=== PATIENT | male | born 1950 | race Caucasian/White ===

== ENCOUNTER 2017-01-13 12:43 | Day surgery (SDC) | payer MEDICARE ==
[~2017-01-13 12:43] MED LIST: APRACLONIDINE HCL 50 DROP BTL RIGHTEYE PRN; PHENYLEPHRINE HCL 50 DROP BTL RIGHTEYE PRN; TROPICAMIDE 150 DROP BTL RIGHTEYE PRN
--- OUTSIDE RECORDS SUMMARY | 2017-01-13 12:48 | XMS REPORT | Continuity of Care Document ---
:1950 Author Organization [facility] ([facility]) Address [address] [place] [address] Phone [phone] Care Team Providers Name Role Phone Oh Tejeda Primary Care Provider [phone] Source Comments This disclosure is being made pursuant to the Care Everywhere program, applicable federal and state laws, and may not contain all informaitonavailable regarding this patient.[facility] ([facility]) Active Allergies and Adverse Reactions No Known Allergies Current Medications Prescription Sig. Disp. Refills Start End Date Status Date aspirin 325 mg EC tablet Take 325 mg Active by mouth 3 daily enalapril 20 mg tablet Take 20 mg Active by mouth 2 3 times daily hydrochlorothiazide 25 Take 25 mg Active mg tablet by mouth 3 daily saxagliptin (ONGLYZA) 5 Take 5 mg by Active mg tablet mouth daily 3 MULTIVITAMIN (MULTIPLE Take 1 Active VITAMINS PO) tablet by mouth daily. sitaGLIPtin (JANUVIA) Take 100 mg Active 100 mg tablet by mouth daily naproxen sodium 220 mg Take 440 mg Active tablet by mouth daily as needed atorvastatin 80 mg Take 80 mg Active tablet by mouth at bedtime gabapentin 300 mg Take 300 mg Active capsule by mouth 2 times daily . metoPROLol succinate 50 Take 50 mg Active mg XL tablet by mouth daily glipiZIDE 10 mg XL Take 10 mg Active tablet by mouth 5 daily . metFORMIN 750 mg XR Take 750 mg Active tablet by mouth 2 5 times daily. docusate 100 mg capsule Take 1 30 capsule 3 01/09/20 Discontinued capsule (100 6 17 mg total) by mouth 2 times daily sennosides 8.6 mg tablet Take 1-2 30 tablet 3 01/09/20 Discontinued tablets 6 17 (8.6-17.2 mg total) by mouth daily Active Problems Problem Noted Date Morbid obesity 09/22/2015 Prostate cancer 09/21/2015 Coronary artery disease Overview: CARDIOVASCULAR PROCEDURES STRESS Stress Echo NORMAL STRESS ECHOCARDIOGRAM PEAK STRESS ECHO IMAGES - Hyperdynamic response to peak stress BASELINE ECHO IMAGES - Normal LV systolic function. No regional wall motion abnormalities. Stress test terminated due to achievement of target HR. 01/05/2016 Hypertension Hyperlipemia Sleep apnea Diabetes Most Recent Encounters Date Type Specialty Providers Description 01/09/2017 Office Visit Heart and Vascular Aniya Alcala MD Dx: Coronary artery disease involving [place] coronary artery of [place] heart without angina pectoris (Primary Dx) 01/08/2017 Office Visit Urology Aj Banks MD Dx: Prostate cancer Lulu Lu PA-C Social History Tobacco Use Types Packs/Day Years Used Date Former Smoker Cigarettes 1 15 Quit: 01/08/1982 Smokeless Tobacco: Never Used Tobacco Cessation:Counseling Given: Yes Comments: Alcohol Use Drinks/Week oz/Week Comments No Last Filed Vital Signs Vital Sign Reading Time Taken Blood Pressure 142/84 01/09/2017 9:55 AM CDT Pulse 56 01/09/2017 9:55 AM CDT Temperature 36.3 C (97.3 F) 01/08/2017 8:14 AM CDT Respiratory Rate 20 09/27/2015 8:22 AM SUSPECT ARTIST Height 1.727 m (5' 8") 01/09/2017 9:55 AM CDT Weight 119.84 kg (264 lb 3.2 oz) 01/09/2017 9:55 AM CDT Body Mass Index 40.18 01/09/2017 9:55 AM CDT Oxygen Saturation 96% 09/23/2015 8:00 AM SUSPECT ARTIST Plan of Care Date Type Specialty Providers Description 06/17/2017 Appointment Urology Aj Banks MD [address] [place] [address] [phone] (Fax) Chief Comp: Patient Lulu Lu PA-C [address] [place] [address] [phone] (Fax) Reported Reason For Visit 01/13/2018 Appointment Heart and Vascular FredrickAniya MD Chief Comp: Patient [address] [place] [address] Visit [phone] (Fax) Health Maintenance Due Date Last Done Comments HCV Screening 1950 Hepatitis B Vaccine (1 of 3 - 1950 Primary Series) Tdap Vaccine 01/02/1960 DIABETIC: Cholesterol 1967 Diabetic: Hdl 1967 Diabetic: Ldl 1967 DIABETIC: Microalbumin 1967 DIABETIC: Triglycerides 1967 Td Vaccine 1967 Colonoscopy 1999 Zoster Vaccine 2009 Pneumococcal Vaccine (1 of 2 2014 - PCV13) DIABETIC: Foot Exam 03/08/2015 DIABETIC: Retinal Eye Exam 03/08/2015 DIABETIC: Hemoglobin A1C 02/12/2016 08/14/2015 Influenza Vaccine: Seasonal 04/15/2017 (Season Ended) Prostate Cancer Screening 01/08/2019 01/08/2017, Additional history exists 09/11/2016, 03/06/2016 Results from Last 3 Months PROSTATE SPECIFIC ANTIGEN (PSA), TOTAL DIAGNOSTIC (01/08/2017 8:19 AM) Component Value Range PSA, Diagnostic <0.03Comment: 0.00-4.50 ng/mL Age specific normal values from the literature for PSA are provided as a guide only.No one decision level is appropriate when utilizing PSA in screening situation.Age, family history, previous values, and other factors should be used in decisions involving PSA values. Reference Ranges: 40-49 years:0.00-2.50 ng/mL 50-59 years:0.00-3.50 ng/mL 60-69 years:0.00-4.50 ng/mL 70-79 years:0.00-6.50 ng/mL Specimen Blood
[2017-01-13 12:54] VITALS: BP 156/74
== END 2017-01-13 12:44 | disposition home or self-care (01) ==
LOC: AMB 12:43
PROVIDERS: ATTEND Ophthalmology
PROC: 085J3ZZ Destruction of Right Lens, Percutaneous Approach (ICD-10-PCS; principal; 2017-01-13 14:55)
DX: H26.491 Other secondary cataract, right eye (principal); Z68.36 Body mass index [BMI] 36.0-36.9, adult

== ENCOUNTER 2020-03-06 10:47 | Observation (INO) ==
--- NOTE | 2020-03-06 11:25 | ERNOTE ---
Chest Pain/Cardiac HPI Date of Service: 03/06/20 Chief Complaint: Tachycardia Time Seen by Provider: 03/06/20 11:06 Source: patient Exam Limitations: no limitations Immunizations: IMMUNIZATION HX Immunizations Up to Date Yes History of Influenza Vaccine No Hx Pneumococcal Vaccination No Allergies/Adverse Reactions: Allergies sitagliptin [From Januvia] Allergy (Mild, Verified 03/06/20 11:48) can cause heart failure hydrochlorothiazide Adverse Reaction (Mild, Verified 03/06/20 11:48) Other leg cramps ragweed pollen Adverse Reaction (Unknown, Verified 03/06/20 11:48) Home Medications: HOME MEDICATIONS Multivitamins [Multivitamin Arden] 1 cap PO DAILY 05/07/13 [Last Taken Unknown] aspirin 325 mg tablet,delayed release 325 mg PO DAILY 04/24/18 [Last Taken Unknown] dulaglutide 0.75 mg/0.5 mL subcutaneous pen injector 0.75 mg SUBCUT QWEEK #2 ml 06/17/19 [Last Taken 02/29/20] enalapril maleate 20 mg tablet 40 mg PO DAILY #180 tab 09/23/19 [Last Taken Unknown] glipizide 10 mg tablet 10 mg PO BID #180 tab 09/23/19 [Last Taken Unknown] metformin 500 mg tablet,extended release 24 hr 1,000 mg PO BID #180 tab 11/29/19 [Last Taken Unknown] atorvastatin 80 mg tablet 80 mg PO DAILY #90 tab 02/22/20 [Last Taken Unknown] Apixaban [Eliquis] 5 mg PO BID 03/06/20 [Last Taken Unknown] Furosemide [Lasix] 40 mg PO DAILY PRN 03/06/20 [Last Taken Unknown] Gabapentin 300 mg PO BID 03/06/20 [Last Taken Unknown] Metoprolol Tartrate 100 mg PO BID 03/06/20 [Last Taken Unknown] Pain Score #1 Pain Score: 0 Narrative: The patient is a 70 year old male who presents for tachycardia which has been present since Friday. There are associated symptoms of dyspnea and fatigue. The patient denies pain. There are no alleviating factors. There are aggravating factors of activity and exertion. Previous treatments have included: none. The past medical history includes: HTN, CAD, DM, HLD, ND, COPD, prostate ca, RLS, AFib and CHF. The social history is positive for former smoker. The patient has had no known ill contacts. Patient states that he noticed tachycardia and increased shortness of breath that began on Friday. Patient denies increased weight gain. Patient reports dx of AFib last year in which he had ROBBIE performed and then cardioversion which later converted back to AFib. Review of Systems - Review of Systems Constitutional: Present: fatigue. Absent: recent illness, fever, diaphoresis EYE: Present: no symptoms reported. Absent: vision changes ENT: Absent: ear pain, nasal drainage, sore throat Respiratory: Present: shortness of breath, cough Cardiology: Absent: chest pain, edema Gastrointestinal/Abdominal: Present: no symptoms reported. Absent: nausea, vomiting, diarrhea, abdominal pain Genitourinary: Present: no symptoms reported. Absent: dysuria, decreased urinary output Musculoskeletal: Present: no symptoms reported Skin: Present: no symptoms reported. Absent: rash Neurological: Present: no symptoms reported. Absent: headache, dizziness/light- headedness, weakness All Other Systems: All systems neg except as marked Medical History (Last Reviewed 03/06/20 @ 11:56 by DOUG Meredith) Atrial flutter Onset Date: ~08/13/19 dx'd in ER Congestive heart failure Onset Date: ~08/13/19 dx'd in ER Bilateral club feet Onset Date: Unknown at ; repair at 1 yrs of age COPD (chronic obstructive pulmonary disease) Onset Date: 05/21/11 Diabetes mellitus Onset Date: 05/21/11 Diabetic nephropathy Onset Date: ~2006 Erectile dysfunction Onset Date: ~2006 History of coronary artery disease Onset Date: 10/21/17 involving [place] coronary artery of [place] heart without angina pectoris- [facility] [place] History of restless legs syndrome Onset Date: ~2006 Hyperlipidemia Onset Date: Unknown Hypertension, essential, benign Onset Date: 05/21/11 Myocardial infarction Onset Date: ~2003 Shoulder pain Onset Date: 05/21/11 History of radiation therapy Onset Date: ~09/2015 for prostate cancer Prostate cancer Onset Date: Unknown Tuberculin skin test positive Onset Date: Unknown chest xray negative Surgical History: Surgical History (Last Reviewed 03/06/20 @ 11:56 by DOUG Meredith) History of carpal tunnel release Onset Date: 08/25/01 Dr Tony Hernandez- right wrist 08/25/2001 and left wrist 07/14/2001 History of colonoscopy Onset Date: 06/12/11 Dr Hodge- benign hyperplastic polyp @ 25 cm History of coronary artery bypass graft Onset Date: ~2003 History of inguinal hernia repair Onset Date: ~2005 History of prostatectomy Onset Date: Unknown History of vasectomy Onset Date: ~2003 Family History: Family History (Last Reviewed 03/06/20 @ 11:56 by DOUG Meredith) Aunt Diabetes Father , age 79 Colon cancer Esophageal cancer Mother , age 72 Heart disease Diabetes Brother Alive and well Brother Alive and well Brother Myocardial infarction Sister Alive and well Sister Alive and well Sister Diabetes insulin dependent Social History: (Last Reviewed 03/06/20 @ 11:56 by DOUG Meredith) Social History: adopted: No foster care: No shelter: No Marital status: lives independently: Yes household members: spouse caregiver/support person: Yes current occupational status: retired Highest education level completed: high school graduate Service: No Tobacco: Smoking Status: Former smoker Alcohol: alcohol intake: current Alcohol type: wine alcohol intake frequency: holiday/special occasion details: occasional glass of wine Substance Use: substance use type: does not use Dietary Habits: caffeine: Yes Type: coffee Marlys/Uatsdin: marlys/muslim: Mandaeism Personal Safety: victim of physical abuse: No victim of emotional abuse: No victim of sexual abuse: No Physical Exam - Physical Exam General Appearance: Present: wd/wn, alert, no apparent distress Head Exam: Present: normal inspection, no evidence of injury Eye Exam: Normal inspection: bilateral Neck: Present: normal inspection Respiratory: Present: no respiratory distress, normal breath sounds, no accessory muscle use, lungs clear Cardiovascular/Chest: Present: no murmur, irregularly irregular Gastrointestinal/Abdominal: Present: normal bowel sounds, nontender, nondistended, soft, no organomegaly Extremity Exam: Present: extremity edema - 2+ pitting bilateral lower extremites Neurological Exam: Present: alert, oriented, normal mood/affect, no motor/sensory deficits Skin Exam: Present: normal color, warm/dry Progress - Date and Time Seen: Date and Time: 03/06/20 12:27 Patient states he began taking his Lasix again on Friday with improved output but no change to dyspnea. 03/06/20 12:33 Review of results discussed with patient. Patient unsure of his Lasix dose. Due to symptoms of dyspnea along with 2+ pitting edema and afib will admit patient for observation CHF with diuresis to and monitoring for symptoms. Case discussed with for observation admission. 03/06/20 12:39 Patient's PCP is , unable to reach, notified , ok to admit. - Results and Orders Patient's Lab Results:: I have reviewed the patient's lab results. - Vital Signs Patient's Vital Signs:: I have reviewed the patient's vital signs. Vital Signs: Vital Signs 03/06/20 10:59 03/06/20 11:02 Temperature 36 C Pulse Rate 113 H 113 H Respiratory Rate 18 Blood Pressure 146/95 H O2 Sat by Pulse Oximetry 96 - EKG EKG #1 EKG: atrial fibrillation - rate 84 EKG read: Reviewed by me - no acute ischemic changes noted, reviewed with - X-Ray X-Ray #1 X-Ray: chest Interpretation: Reviewed by me X-ray Comments: IMPRESSION: CHRONIC BORDERLINE CARDIOMEGALY. CHRONIC LEFT MID AND LEFT LUNG BASE CONSOLIDATION WITH CHRONIC SMALL PLEURAL EFFUSION. Electronically signed by Yong Song M.D.. - Progress/Reassessment Chief Complaint: Tachycardia Departure Clinical Impression: Atrial fibrillation/flutter Congestive heart failure Qualifiers: Heart failure type: diastolic Heart failure chronicity: acute on chronic Qualified Code(s): I50.33 - Acute on chronic diastolic (congestive) heart failure - Departure Disposition: Still a patient Condition: Good
[2020-03-06 11:46] LABS: Hematocrit 43.1 % (42.0-52.0); Hemoglobin 14.4 gm/dL (13.5-18.0); Mean Cell Volume 91.9 fl (78-100); Mean Corpuscular Hemoglobin 30.7 pg (27-31); Mean Corpuscular Hgb Conc 33.4 g/dl (32-36); Mean Platelet Volume 9.7 fl (8-11.3); Neutrophil # 6.3 K/mm3 (1.3-6.0); Neutrophil % 69.6 % (42-75.0); Platelet Count 221 K/mm3 (150-450); Red Blood Count 4.69 M/mm3 (4.7-6.0); Red Cell Distribution Width 14.6 % (11.5-14.0); White Blood Count 9.1 K/mm3 (4.0-10.5)
[2020-03-06 11:55] LABS: Prothrombin Time (Patient) 10.4 Seconds (9.1-10.7)
[2020-03-06 12:03] LABS: INR 1.05 INR (0.92-1.08); Partial Thrombolplastin Time 27.5 Seconds (24-32); Troponin I Less than 0.017 ng/mL (0.00-0.10)
[2020-03-06 12:13] LABS: ALT 61 U/L (19-67); AST 25 U/L (0-48); Albumin * 3.8 gm/dl (3.4-5.0); Alkaline Phosphatase * 88 U/L (50-170); BNP * 2256 pg/mL (5-350); BUN/Creatinine Ratio 14.3 (9.0-21.6); Bilirubin, Total 1.5 mg/dL (0.0-1.1); Blood Urea Nitrogen 17 mg/dL (6-23); Ca. Corrected For Albumin 8.9 mg/dL (8.4-10.2); Calcium * 9.1 mg/dL (7.9-10.9); Carbon Dioxide 30.7 mmol/L (24-32.6); Chloride 98 mmol/L (97-106); Glucose * 193 mg/dL (70-110); Potassium 3.7 mmol/L (3.4-4.6); Sodium 137 mmol/L (132-142); Total Protein 8.1 gm/dL (6.2-8.2)
[2020-03-06] MEDS ORDERED: FUROSEMIDE 10 MG/ML VIAL IV ONE (12:32)
--- NOTE | 2020-03-06 19:21 | HP ---
Chief Complaint - Chief Complaint Date of Service: 03/06/20 Time of Service: 12:50 Chief Complaint: Shortness of breath, weakness, irregular heart rhythm History of Present Illness: Tomer Leong is a 70-year-old male patient of Dr. Oh Tejeda MD who presented to ER with shortness of breath and an irregular tachydysrhythmia. Evaluation in the ER suggested CHF and atrial fib flutter that appears to be intermittent. This was associated with mild RVR as well. He was diuresed in the emergency room with 40 of Lasix IV. He voided a lot of urine and by the time I examined him in ER his rales were gone and he was no longer dyspneic. His neck veins were no longer distended. He continued to be in atrial fib flutter with mild RVR with a heart rate of around [id number]. Chest x-ray shows what looks to be a chronic pleural effusion but I suspect that it is just scar tissue residual from his CABG. The radiologist also says her some small pleural effusions but one sees these a lot after a CABG. He is in no distress at this time he is going to [facility] unit. I have notified Dr. Juliana Osman of his admission about 7:10 PM tonight and he will see him tomorrow morning. Medical History (Last Reviewed 03/06/20 @ 13:46 by Sherlyn Segura RN) Atrial flutter Onset Date: ~08/13/19 dx'd in ER Congestive heart failure Onset Date: ~08/13/19 dx'd in ER Bilateral club feet Onset Date: Unknown at ; repair at 1 yrs of age COPD (chronic obstructive pulmonary disease) Onset Date: 05/21/11 Diabetes mellitus Onset Date: 05/21/11 Diabetic nephropathy Onset Date: ~2006 Erectile dysfunction Onset Date: ~2006 History of coronary artery disease Onset Date: 10/21/17 involving [place] coronary artery of [place] heart without angina pectoris- [facility] [place] History of restless legs syndrome Onset Date: ~2006 Hyperlipidemia Onset Date: Unknown Hypertension, essential, benign Onset Date: 05/21/11 Myocardial infarction Onset Date: ~2003 Shoulder pain Onset Date: 05/21/11 History of radiation therapy Onset Date: ~09/2015 for prostate cancer Prostate cancer Onset Date: Unknown Tuberculin skin test positive Onset Date: Unknown chest xray negative Surgical History: Surgical History (Last Reviewed 03/06/20 @ 13:46 by Sherlyn Segura RN) History of carpal tunnel release Onset Date: 08/25/01 Dr Tony Hernandez- right wrist 08/25/2001 and left wrist 07/14/2001 History of colonoscopy Onset Date: 06/12/11 Dr Hodge- benign hyperplastic polyp @ 25 cm History of coronary artery bypass graft Onset Date: ~2003 History of inguinal hernia repair Onset Date: ~2005 History of prostatectomy Onset Date: Unknown History of vasectomy Onset Date: ~2003 Family History: Family History (Last Reviewed 03/06/20 @ 13:46 by Sherlyn Segura RN) Aunt Diabetes Father , age 79 Esophageal cancer Colon cancer Mother , age 72 Diabetes Heart disease Brother Alive and well Brother Alive and well Brother Myocardial infarction Sister Alive and well Sister Alive and well Sister Diabetes insulin dependent Social History: (Last Reviewed 03/06/20 @ 13:46 by Sherlyn Segura RN) Social History: adopted: No foster care: No chcf: No Marital status: lives independently: Yes household members: spouse caregiver/support person: Yes current occupational status: retired Highest education level completed: high school graduate Service: No Tobacco: Smoking Status: Former smoker Alcohol: alcohol intake: current Alcohol type: wine alcohol intake frequency: holiday/special occasion details: occasional glass of wine Substance Use: substance use type: does not use Dietary Habits: caffeine: Yes Type: coffee Marlys/Jehovah'S Witness: marlys/nondenominational: Yazidism Personal Safety: victim of physical abuse: No victim of emotional abuse: No victim of sexual abuse: No Review Of Systems (GEN) - Review of Systems Generalized/Overall Review: Present: Weakness, Malaise EENTM: Present: No Symptoms Reported Respiratory: Present: Shortness of Breath Cardiac: Present: Palpitations Abdominal: Present: No Symptoms Reported Genitourinary: Present: No Symptoms Reported Musculoskeletal: Present: No Symptoms Reported Neurological: Present: No Symptoms Reported Skin: Present: No Symptoms Reported Endocrine: Present: No Symptoms Reported Immunizations: IMMUNIZATION HX Immunizations Up to Date Yes History of Influenza Vaccine No Hx Pneumococcal Vaccination No Allergies/Adverse Reactions: Allergies Allergy/AdvReac Type Severity Reaction Status Date / Time sitagliptin [From Sepuvia] Allergy Mild can cause Verified 03/06/20 11:48 heart failure hydrochlorothiazide AdvReac Mild Other Verified 03/06/20 11:48 ragweed pollen AdvReac Unknown Verified 03/06/20 11:48 Home Medications: HOME MEDICATIONS Multivitamins [Multivitamin Arden] 1 cap PO DAILY 05/07/13 [Last Taken Unknown] aspirin 325 mg tablet,delayed release 325 mg PO DAILY 04/24/18 [Last Taken Unknown] dulaglutide 0.75 mg/0.5 mL subcutaneous pen injector 0.75 mg SUBCUT QWEEK #2 ml 06/17/19 [Last Taken 02/29/20] enalapril maleate 20 mg tablet 40 mg PO DAILY #180 tab 09/23/19 [Last Taken Unknown] glipizide 10 mg tablet 10 mg PO BID #180 tab 09/23/19 [Last Taken Unknown] metformin 500 mg tablet,extended release 24 hr 1,000 mg PO BID #180 tab 11/29/19 [Last Taken Unknown] atorvastatin 80 mg tablet 80 mg PO DAILY #90 tab 02/22/20 [Last Taken Unknown] Apixaban [Eliquis] 5 mg PO BID 03/06/20 [Last Taken Unknown] Furosemide [Lasix] 40 mg PO DAILY PRN 03/06/20 [Last Taken Unknown] Gabapentin 300 mg PO BID 03/06/20 [Last Taken Unknown] Metoprolol Tartrate 100 mg PO BID 03/06/20 [Last Taken Unknown] Exam - Exam Vital Signs: Vital Signs - Last Taken Temp 36.6 C 03/06/20 18:00 Pulse 80 03/06/20 18:00 Resp 18 03/06/20 18:00 BP 120/83 03/06/20 18:00 Pulse Ox 95 03/06/20 18:00 Constitutional: Present: Alert, Oriented x3, Cooperative, Well developed, Well nourished, Obese ENT Exam: Present: normal ENT inspection, hearing grossly normal, pharynx normal, TMs normal Eye Exam: bilateral eye: normal inspection, PERRL, EOMI Neck: Present: non-tender, full range of motion, supple, normal inspection Back Exam: Present: normal inspection, no CVA tenderness, no vertebral tenderness Breasts: Present: Exam deferred Respiratory: Present: chest non-tender, lungs clear Cardiovascular/Chest: Present: normal peripheral pulses, regular rate, rhythm, no chest tenderness, no edema, no gallop, no JVD, no murmur, no rub Peripheral Pulses: carotid (R): 2+, carotid (L): 2+, radial (R): 2+, radial (L): 2+ Abdomen: Present: Normal bowel sounds, soft, nontender, nondistended, no rebound tenderness, no hepatospenomegaly, no masses, obese /Rectal: Present: Exam deferred, External genitalia normal Skin Exam: Present: normal color, warm/dry, no cyanosis Lymphatic: Present: no adenopathy Neurologic: Present: card cutter II-XII nml as tested, normal cerebellar test Appearance: Present: appropriate appearance, appropriate insight, neat, impaired remote memory Eye contact: Present: cooperative, good eye contact, normal speech Thoughts: Present: normal thought pattern, no apparent hallucination Diagnostic Studies: Abnormal Lab Results 03/06/20 03/06/20 Range/Units 11:34 11:34 RBC 4.69 L (4.7-6.0) M/mm3 RDW 14.6 H (11.5-14.0) % Immature Gran % (Auto) 0.70 H (0.001-0.429) % Immature Gran # (Auto) 0.06 H (0.000-0.0310) K/mm3 Lymphocytes % 15.7 L (20-51) % Eosinophils % 6.5 H (0.0-3.0) % Basophils % 1.1 H (0.0-1.0) % Neutrophils # 6.3 H (1.3-6.0) K/mm3 Lymphocytes # 1.42 L (1.5-3.5) k/mm3 Random Glucose 193 H (70-110) mg/dL Total Bilirubin 1.5 H (0.0-1.1) mg/dL B-Natriuretic Peptide 2256 H (5-350) pg/mL Laboratory Results WBC 9.1 K/mm3 (4.0-10.5) 03/06/20 11:34 RBC 4.69 M/mm3 (4.7-6.0) L 03/06/20 11:34 Hgb 14.4 gm/dL (13.5-18.0) 03/06/20 11:34 Hct 43.1 % (42.0-52.0) 03/06/20 11:34 MCV 91.9 fl (78-100) 03/06/20 11:34 MCH 30.7 pg (27-31) 03/06/20 11:34 MCHC 33.4 g/dl (32-36) 03/06/20 11:34 RDW 14.6 % (11.5-14.0) H 03/06/20 11:34 Plt Count 221 K/mm3 (150-450) 03/06/20 11:34 MPV 9.7 fl (8-11.3) 03/06/20 11:34 Immature Gran % (Auto) 0.70 % (0.001-0.429) H 03/06/20 11:34 Immature Gran # (Auto) 0.06 K/mm3 (0.000-0.0310) H 03/06/20 11:34 Neutrophils % 69.6 % (42-75.0) 03/06/20 11:34 Lymphocytes % 15.7 % (20-51) L 03/06/20 11:34 Monocytes % 6.4 % (0.0-9) 03/06/20 11:34 Eosinophils % 6.5 % (0.0-3.0) H 03/06/20 11:34 Basophils % 1.1 % (0.0-1.0) H 03/06/20 11:34 Nucleated RBC % 0.0 k/mm3 (0-1) 03/06/20 11:34 Neutrophils # 6.3 K/mm3 (1.3-6.0) H 03/06/20 11:34 Lymphocytes # 1.42 k/mm3 (1.5-3.5) L 03/06/20 11:34 Monocytes # 0.6 k/mm3 (0.0-1.0) 03/06/20 11:34 Eosinophils # 0.6 k/mm3 (0.0-0.7) 03/06/20 11:34 Absolute Basophils 0.1 k/mm3 (0.0-0.1) 03/06/20 11:34 PT 10.4 Seconds (9.1-10.7) 03/06/20 11:34 INR (Anticoag Therapy) 1.05 INR (0.92-1.08) 03/06/20 11:34 PTT (Flynn) 27.5 Seconds (24-32) 03/06/20 11:34 Sodium 137 mmol/L (132-142) 03/06/20 11:34 Plasma Sodium 138 mmol/L (130-142) 03/06/20 11:34 Potassium 3.7 mmol/L (3.4-4.6) 03/06/20 11:34 Chloride 98 mmol/L (97-106) 03/06/20 11:34 Carbon Dioxide 30.7 mmol/L (24-32.6) 03/06/20 11:34 Anion Gap 12.0 mmol/L (6.8-13.8) 03/06/20 11:34 BUN 17 mg/dL (6-23) 03/06/20 11:34 Creatinine 1.19 mg/dL (0.4-1.4) 03/06/20 11:34 Est GFR (Non-Af Amer) 64 mL/min (60-130) 03/06/20 11:34 BUN/Creatinine Ratio 14.3 (9.0-21.6) 03/06/20 11:34 Random Glucose 193 mg/dL (70-110) H 03/06/20 11:34 Calcium 9.1 mg/dL (7.9-10.9) 03/06/20 11:34 Calcium Adj for Albumin 8.9 mg/dL (8.4-10.2) 03/06/20 11:34 Total Bilirubin 1.5 mg/dL (0.0-1.1) H 03/06/20 11:34 AST 25 U/L (0-48) 03/06/20 11:34 ALT 61 U/L (19-67) 03/06/20 11:34 Alkaline Phosphatase 88 U/L (50-170) 03/06/20 11:34 Troponin I Less than 0.017 ng/mL (0.00-0.10) 03/06/20 11:34 B-Natriuretic Peptide 2256 pg/mL (5-350) H 03/06/20 11:34 Total Protein 8.1 gm/dL (6.2-8.2) 03/06/20 11:34 Albumin 3.8 gm/dl (3.4-5.0) 03/06/20 11:34 Assessment/Plan - Narrative Narrative: Monitor vital signs through the night. Reweigh again tomorrow morning. Check morning lab and EKG. Dr. Tejeda to assume management tomorrow morning. Anticipate discharge tomorrow. - Assessment/Plan (1) Atrial fibrillation/flutter Problem: Acute (2) Congestive heart failure Problem: Acute Qualifiers: Heart failure type: diastolic (3) CAD (coronary artery disease) Problem: Chronic Qualifiers: Coronary Disease-Associated Artery/Lesion type: [place] artery [place] vs. transplanted heart: [place] heart Associated angina: without angina Qualified Code(s): I25.10 - Atherosclerotic heart disease of [place] coronary artery without angina pectoris
[2020-03-06] MEDS: ASPIRIN 325 MG TABLET.DR PO SCH (19:30)
[2020-03-06] MEDS ORDERED: glipiZIDE 5 MG TABLET ONE (20:43)
[2020-03-06] MEDS: APIXABAN 5 MG TABLET PO SCH (20:45)
[2020-03-06] MEDS: GABAPENTIN 300 MG CAPSULE PO SCH (20:46)
[2020-03-06] MEDS: glipiZIDE 10 MG TABLET PO SCH (20:53)
[2020-03-06] MEDS ORDERED: ROSUVASTATIN CALCIUM 20 MG TABLET PO SCH (21:00)
[2020-03-06] MEDS ORDERED: METOPROLOL TARTRATE 50 MG TABLET PO SCH (21:00)
[2020-03-07 06:31] LABS: Hematocrit 38.8 % (42.0-52.0); Hemoglobin 12.9 gm/dL (13.5-18.0); Mean Cell Volume 90.7 fl (78-100); Mean Corpuscular Hemoglobin 30.1 pg (27-31); Mean Corpuscular Hgb Conc 33.2 g/dl (32-36); Mean Platelet Volume 9.8 fl (8-11.3); Neutrophil # 5.2 K/mm3 (1.3-6.0); Neutrophil % 64.5 % (42-75.0); Platelet Count 196 K/mm3 (150-450); Red Blood Count 4.28 M/mm3 (4.7-6.0); Red Cell Distribution Width 14.4 % (11.5-14.0); White Blood Count 8.1 K/mm3 (4.0-10.5)
[2020-03-07 06:35] LABS: Albumin * 3.2 gm/dl (3.4-5.0); Anion Gap 13.4 mmol/L (6.8-13.8); BUN/Creatinine Ratio 13.7 (9.0-21.6); Bilirubin, Total 1.3 mg/dL (0.0-1.1); Ca. Corrected For Albumin 9.5 mg/dL (8.4-10.2); Calcium * 9.2 mg/dL (7.9-10.9); Carbon Dioxide 30.2 mmol/L (24-32.6); Magnesium 1.6 mg/dL (1.2-2.8); Potassium 3.6 mmol/L (3.4-4.6); Total Protein 6.8 gm/dL (6.2-8.2)
[2020-03-07] MEDS: glipiZIDE 10 MG TABLET PO SCH (08:05)
[2020-03-07] MEDS: APIXABAN 5 MG TABLET PO SCH (08:09)
[2020-03-07] MEDS: GABAPENTIN 300 MG CAPSULE PO SCH (08:09)
[2020-03-07] MEDS: ASPIRIN 325 MG TABLET.DR PO SCH (08:09)
[2020-03-07] MEDS ORDERED: METOPROLOL TARTRATE 100 MG TABLET PO SCH (09:00)
[2020-03-07] MEDS ORDERED: MULTIVITAMINS 1 CAP CAPSULE PO SCH (09:00)
[2020-03-07] MEDS ORDERED: ENALAPRIL MALEATE 20 MG TABLET PO SCH (09:00)
--- NOTE | 2020-03-07 11:46 | DS ---
(1) Atrial fibrillation/flutter Diagnosis(s): Chronic recurrent. He had the same problem towards the end of last year. He was cardioverted, but then relapsed back into atrial fibrillation/flutter. His process mechanic is Dr. Aniya Alcala. Problem: Chronic (2) Congestive heart failure Problem: Resolved Qualifiers: Heart failure type: diastolic Heart failure chronicity: acute on chronic Qualified Code(s): I50.33 - Acute on chronic diastolic (congestive) heart failure (3) Benign essential hypertension Problem: Chronic (4) CAD (coronary artery disease) Problem: Chronic Qualifiers: Coronary Disease-Associated Artery/Lesion type: [place] artery [place] vs. transplanted heart: [place] heart Associated angina: without angina Qualified Code(s): I25.10 - Atherosclerotic heart disease of [place] coronary artery without angina pectoris (5) Diabetes mellitus Diagnosis(s): Poorly controlled Problem: Chronic Qualifiers: Diabetes mellitus type: type 2 Diabetes mellitus senior living insulin use: without medical terminologist use Diabetes mellitus complication status: with neurologic complications Diabetes mellitus complication detail: with polyneuropathy Qualified Code(s): E11.42 - Type 2 diabetes mellitus with diabetic polyneuropathy Date of Discharge:: 03/07/20 Hospital Course: Tomer Leong is a 70-year-old male who presented to ER with shortness of breath and an irregular tachydysrhythmia yesterday. Evaluation in the ER suggested CHF and atrial fib flutter that appears to be intermittent. This was associated with mild RVR as well. He was diuresed in the emergency room with 40 of Lasix IV. He voided a lot of urine and got back to his normal state a few hours later. He had atrial fibrillation/flutter towards the end of last year. He was cardioverted, but he relapsed back into this rhythm. His last echocardiogram was in December of this year. This morning he is feeling fine, back to himself. His blood pressure has been under good control. His diabetes is been under poor control. He has 40 mg of Lasix at home, but he only takes this when his legs are swollen. His heart rate was a little elevated when he first came in, but is now down to the 60s to 80s and irregular rhythm. We have asked him to take his Lasix every day until further notice. Procedures Performed: none Assessment: His lab values have been essentially unremarkable, except for a slightly elevated random glucose level. His last hemoglobin A1c was over 10. Results and Findings: Lab Pending Results 03/06/20 11:34: WBC 9.1, RBC 4.69 L, Hgb 14.4, Hct 43.1, MCV 91.9, MCH 30.7, MCHC 33.4, RDW 14.6 H, Plt Count 221, MPV 9.7, Immature Gran % (Auto) 0.70 H, Immature Gran # (Auto) 0.06 H, Neutrophils % 69.6, Lymphocytes % 15.7 L, Monocytes % 6.4, Eosinophils % 6.5 H, Basophils % 1.1 H, Nucleated RBC % 0.0, Neutrophils # 6.3 H, Lymphocytes # 1.42 L, Monocytes # 0.6, Eosinophils # 0.6, Absolute Basophils 0.1 03/06/20 11:34: PT 10.4, INR (Anticoag Therapy) 1.05, PTT ([place]) 27.5 03/06/20 11:34: Sodium 137, Plasma Sodium 138, Potassium 3.7, Chloride 98, Carbon Dioxide 30.7, Anion Gap 12.0, BUN 17, Creatinine 1.19, Est GFR (Non-Af Amer) 64, BUN/Creatinine Ratio 14.3, Random Glucose 193 H, Calcium 9.1, Calcium Adj for Albumin 8.9, Total Bilirubin 1.5 H, AST 25, ALT 61, Alkaline Phosphatase 88, Troponin I Less than 0.017, B-Natriuretic Peptide 2256 H, Total Protein 8.1, Albumin 3.8 03/07/20 06:15: Sodium 138, Plasma Sodium 139, Potassium 3.6, Chloride 98, Carbon Dioxide 30.2, Anion Gap 13.4, BUN 16, Creatinine 1.17, Est GFR (Non-Af Amer) 65, BUN/Creatinine Ratio 13.7, Random Glucose 182 H, Calcium 9.2, Calcium Adj for Albumin 9.5, Magnesium 1.6, Total Bilirubin 1.3 H, AST 18, ALT 43, Alkaline Phosphatase 67, Total Protein 6.8, Albumin 3.2 L 03/07/20 06:15: WBC 8.1, RBC 4.28 L, Hgb 12.9 L, Hct 38.8 L, MCV 90.7, MCH 30.1, MCHC 33.2, RDW 14.4 H, Plt Count 196, MPV 9.8, Immature Gran % (Auto) 0.70 H, Immature Gran # (Auto) 0.06 H, Neutrophils % 64.5, Lymphocytes % 19.2 L, Monocytes % 7.5, Eosinophils % 7.1 H, Basophils % 1.0, Nucleated RBC % 0.0, Neutrophils # 5.2, Lymphocytes # 1.56, Monocytes # 0.6, Eosinophils # 0.6, Absolute Basophils 0.1 Discharge Location: Home Disposition: Home self-care Condition: Good Discharge Activity: Activity as tolerated Discharge Diet: Low salt Additional Patient Instructions (free text): Avoid salty foods and any salt added to foods. Take your Lasix every day until further notice. Please call us if you have problems or questions. Come to see me in the office for recheck in 1 week. Complete Home Medications List: Complete Home Medication List: Multivitamins [Multivitamin [place]] 1 cap PO DAILY 05/07/13 aspirin 325 mg tablet,delayed release 325 mg PO DAILY 04/24/18 dulaglutide 0.75 mg/0.5 mL subcutaneous pen injector 0.75 mg SUBCUT QWEEK #2 ml 06/17/19 enalapril maleate 20 mg tablet 40 mg PO DAILY #180 tab 09/23/19 glipizide 10 mg tablet 10 mg PO BID #180 tab 09/23/19 metformin 500 mg tablet,extended release 24 hr 1,000 mg PO BID #180 tab 11/29/19 atorvastatin 80 mg tablet 80 mg PO DAILY #90 tab 02/22/20 Apixaban [Eliquis] 5 mg PO BID 03/06/20 Furosemide [Lasix] 40 mg PO DAILY PRN 03/06/20 Gabapentin 300 mg PO BID 03/06/20 Metoprolol Tartrate 100 mg PO BID 03/06/20 Forms: Patient Portal Registration
[2020-03-07 12:41] VITALS: BP 134/39
[2020-03-07] MEDS ORDERED: FUROSEMIDE 40 MG TABLET PO PRN (18:56)
== END 2020-03-07 13:18 | disposition home or self-care (01) ==
LOC: ER 10:47 → MS 10:47
PROVIDERS: ADMIT Family Medicine; ATTEND Allergy & Immunology
DX: Z87.891 Personal history of nicotine dependence; Z79.01 Long term (current) use of anticoagulants; I25.10 Atherosclerotic heart disease of native coronary artery without angina pectoris; E11.42 Type 2 diabetes mellitus with diabetic polyneuropathy; I48.92 Unspecified atrial flutter; I48.20 Chronic atrial fibrillation, unspecified; I50.33 Acute on chronic diastolic (congestive) heart failure; I11.0 Hypertensive heart disease with heart failure
CPT/HCPCS: 36415; 71020; 71046; 80053; 83519; 83735; 83880; 84484; 85025; 85610; 85730; 93005; 94660; 96374; 99284; 99285; G0378